=== PATIENT | male | born 2000 | race Caucasian/White ===

== ENCOUNTER 2023-03-11 12:47 | Emergency (ER) | payer MEDICAID ==
[~2023-03-11] VITALS: Ht 172.7 cm; Wt 118.6 kg
[2023-03-11 13:15] VITALS: BP 149/90; PULSE 67; RESP 18; TEMP 98.3; O2SAT 98
[2023-03-11] MEDS ORDERED: KETOROLAC 30 MG/ML VIAL IM ONE (13:30)
[2023-03-11 14:22] LABS: BASOPHILS % (AUTO) 0.6 % (0.0-2.0); EOSINOPHILS # (AUTO) 0.7 K/uL (0-0.4); EOSINOPHILS % (AUTO) 8.4 % (0.0-4.0); HEMATOCRIT 50.9 % (36-52); HEMOGLOBIN 17.2 g/dL (12.0-18.0); LYMPHOCYTES # (AUTO) 2.4 K/uL (2.0-11.5); LYMPHOCYTES % (AUTO) 30.9 % (20.5-51.1); MEAN CORPUSCULAR HEMOGLOBIN 29 pg (27-31); MEAN CORPUSCULAR HGB CONC 34 g/dL (33-37); MEAN CORPUSCULAR VOLUME 85.6 fL (80-94); MONOCYTES # (AUTO) 0.6 K/uL (0.8-1.0); MONOCYTES % (AUTO) 7.1 % (1.7-9.3); NEUTROPHILS # (AUTO) 4.2 K/uL (1.8-7.7); PLATELET COUNT (AUTO) 286 K/uL (140-450); RED BLOOD CELL COUNT(AUTO) 5.94 MIL/uL (4.20-6.10); RED CELL DISTRIBUTION WIDTH 13.8 % (11.6-13.7); WHITE BLOOD COUNT (AUTO) 7.9 K/uL (4.8-10.8)
[2023-03-11 14:43] LABS: ALBUMIN 4.6 g/dL (3.4-5.0); CALCIUM 9.8 mg/dL (8.5-10.1); CREATININE 1.1 mg/dL (0.6-1.3); TOTAL BILIRUBIN 0.6 mg/dL (0.0-1.0); TOTAL PROTEIN, SERUM 8.5 g/dL (6.4-8.2)
[2023-03-11] MEDS ORDERED: IBUP-2218 PO (15:23)
== END 2023-03-11 15:30 | disposition home or self-care (01) ==
LOC: MED 12:47
DX: S20.211A Contusion of right front wall of thorax, initial encounter (principal); R04.2 Hemoptysis; R03.0 Elevated blood-pressure reading, without diagnosis of hypertension; Z79.1 Long term (current) use of non-steroidal anti-inflammatories (NSAID); W22.8XXA Striking against or struck by other objects, initial encounter; Y93.51 Activity, roller skating (inline) and skateboarding; Y92.331 Roller skating rink as the place of occurrence of the external cause; Y99.8 Other external cause status
CPT/HCPCS: 36415; 71101; 80053; 85025; 96372; 99284; J1885

== ENCOUNTER 2023-03-11 20:22 | Emergency (ER) | payer MEDICAID ==
[~2023-03-11] VITALS: Ht 172.7 cm; Wt 118.4 kg
[~2023-03-11 20:22] MED LIST: IBUP-2218 PO
[2023-03-11 20:31] VITALS: BP 154/83; PULSE 94; RESP 16; TEMP 97.4; O2SAT 99
[2023-03-11 21:43] VITALS: TEMP 98.5
[2023-03-11] MEDS: LIDOCAINE/EPI MPF 1%1:200000 30 ML VIAL INJ ONE (23:38)
[2023-03-12 00:01] VITALS: O2SAT 97
[2023-03-12 00:03] VITALS: BP 141/97; PULSE 84; RESP 15; O2SAT 97
== END 2023-03-12 00:01 | disposition home or self-care (01) ==
LOC: MED 20:22
DX: S61.412A Laceration without foreign body of left hand, initial encounter (principal); Z79.899 Other long term (current) drug therapy; W25.XXXA Contact with sharp glass, initial encounter; Y93.89 Activity, other specified; Y92.89 Other specified places as the place of occurrence of the external cause; Y99.8 Other external cause status
CPT/HCPCS: 12001; 73130; 90471; 90715; 99283; J2001